=== PATIENT | female | born 1980 | race Caucasian/White ===

== ENCOUNTER 2020-05-19 19:27 | Emergency (ER) | payer OTHER ==
[~2020-05-19] VITALS: Ht 157.5 cm; Wt 68.9 kg
[2020-05-19 19:30] VITALS: BP 146/80
--- NOTE | 2020-05-19 19:30 | NUR ---
TO BED AMBULATORY
--- NOTE | 2020-05-19 19:38 | NUR ---
PATIENT STATES UNABLE TO PROVIDE URINE SAMPLE AT THIS TIME. ERMD MADE AWARE AND STATES OK TO GIVE PATIENT WATER.
--- NOTE | 2020-05-19 19:43 | NUR ---
PATIENT 39 Y/O FEMALE BIB SELF FOR C/O LOW BACK PAIN AND N/V X 2 DAYS. PATIENT STATES PAIN 8/10 IN BILATERAL FLANK X 2 DAYS. PATIENT ADMITS TO "HX OF RENAL FAILURE." PAITENT STATES "MILD URINARY BURNING." PATIENT ALSO HAS C/O N/V X 2 DAYS. ABD IS ROUND, SOFT, AND NON-TENDER. PATIENT BS ACTIVE X 4 QUADRANTS. SEE COMPELTE ASSESSMENT FOR FUTHER DETAILS. MEDHX: ULCER, CHRONIC BACK PAIN, TUBAL LIGATION ALLERGIES: NKA RX: NORCO
--- NOTE | 2020-05-19 19:55 | NUR ---
ERMD AT BEDSIDE EVALUATING PATIENT.
[2020-05-19] MEDS ORDERED: METOCLOPRAMIDE 10 MG/2 ML INJ VIAL IVP ONE (20:00)
[2020-05-19] MEDS ORDERED: diphenhydrAMINE 50 MG/ML VIAL IVP ONE (20:00)
--- NOTE | 2020-05-19 20:15 | NUR ---
IV PLACED IN L AC, LABS DRAWN AND GIVEN TO COLLECTION AGENT.
[2020-05-19 20:22] LABS: BASOPHILS % (AUTO) 0.4 % (0.0-2.0); EOSINOPHILS # (AUTO) 0.2 K/uL (0-0.4); EOSINOPHILS % (AUTO) 4.1 % (0.0-4.0); HEMATOCRIT 35.8 % (36-48); HEMOGLOBIN 11.6 g/dL (12.0-16.0); LYMPHOCYTES # (AUTO) 1.8 K/uL (2.5-16.5); LYMPHOCYTES % (AUTO) 35.9 % (20.5-51.1); MEAN CORPUSCULAR HEMOGLOBIN 24 pg (27-31); MEAN CORPUSCULAR HGB CONC 33 g/dL (33-37); MEAN CORPUSCULAR VOLUME 75.2 fL (80-94); MONOCYTES # (AUTO) 0.3 K/uL (0.8-1.0); MONOCYTES % (AUTO) 6.2 % (1.7-9.3); NEUTROPHILS # (AUTO) 2.7 K/uL (1.8-7.7); NEUTROPHILS % (AUTO) 53.4 % (42.2-75.2); PLATELET COUNT (AUTO) 345 K/uL (140-450); RED BLOOD CELL COUNT(AUTO) 4.76 MIL/uL (4.20-5.40); RED CELL DISTRIBUTION WIDTH 15.6 % (11.6-13.7); WHITE BLOOD COUNT (AUTO) 5.1 K/uL (4.8-10.8)
[2020-05-19 20:43] LABS: ALBUMIN 3.5 g/dL (3.4-5.0); ANION GAP 10.4 (8-16); CARBON DIOXIDE 29.4 mmol/L (21-32); CREATININE 0.9 mg/dL (0.6-1.3); POTASSIUM 3.8 mmol/L (3.5-5.1); TOTAL BILIRUBIN 0.4 mg/dL (0.0-1.0)
[2020-05-19 20:58] LABS: APPEARANCE,URINE SL CLOUDY (CLEAR); BILIRUBIN,URINE NEGATIVE (NEGATIVE); BLOOD, URINE NEGATIVE (NEGATIVE); COLOR,URINE YELLOW (YELLOW); LEUKOCYTE ESTERASE ,URINE TRACE (NEGATIVE); NITRITE, URINE POSITIVE (NEGATIVE); PH,URINE 8.5 (5.0-9.0); UGLUCOSE NEGATIVE (NEGATIVE)
[2020-05-19 21:03] LABS: RBC,URINE 0-5 /HPF (0-5)
[2020-05-19 21:09] LABS: BARBITURATE, URINE NEGATIVE ng/ml (NEG <=200); BENZODIAZEPINE, URINE NEGATIVE ng/mL (NEG <=200); CANNABINOID, URINE NEGATIVE ng/mL (NEG <=50); COCAINE, URINE NEGATIVE ng/mL (NEG <=300); OPIATE, URINE POSITIVE ng/mL (NEG <=2000); PHENCYCLIDINE SCREEN,URINE NEGATIVE ng/mL (NEG <=25)
[2020-05-19] MEDS ORDERED: ONDA-24 SL (21:21)
[2020-05-19] MEDS ORDERED: NITR100C7 PO (21:24)
[2020-05-19] MEDS ORDERED: NACL 0.9% 1,000 ML IV ONE (21:30)
--- NOTE | 2020-05-19 22:19 | NUR ---
Patient is currently ambulatory with steady gait, able to walk unassisted. Positive gag reflex. Alert and oriented. Is not driving self for discharge out of facility. [facility]
--- NOTE | 2020-05-19 22:19 | NUR ---
IV removed, catheter intact and site benign. Applied folded 4x4 gauze and tape to stop bleeding.
[2020-05-19 22:20] VITALS: BP 137/78
--- NOTE | 2020-05-19 22:20 | NUR ---
Patient discharged with v/s stable. Written and verbal after care instructions given and explained. Patient alert, oriented and verbalized understanding of instructions. Ambulatory with steady gait. All questions addressed prior to discharge. ID band removed. Patient advised to follow up with PMD. Rx of MACROBID, ZOFRAN given. Patient educated on indication of medication including possible reaction and side effects. Opportunity to ask questions provided and answered.
== END 2020-05-19 22:20 | disposition home or self-care (01) ==
LOC: MED 19:27
DX: N39.0 Urinary tract infection, site not specified (principal); R11.2 Nausea with vomiting, unspecified; F15.10 Other stimulant abuse, uncomplicated; F17.210 Nicotine dependence, cigarettes, uncomplicated; Z87.448 Personal history of other diseases of urinary system; Z71.6 Tobacco abuse counseling
CPT/HCPCS: 36415; 80053; 80305; 81001; 81025; 83690; 85025; 87086; 96361; 96374; 96375; 99284; J1200; J2765; J7030

== ENCOUNTER 2020-05-23 18:34 | Emergency (ER) | payer OTHER ==
[~2020-05-23] VITALS: Ht 157.5 cm; Wt 70.3 kg
[~2020-05-23 18:34] MED LIST: NITR100C7 PO; ONDA-24 SL
[2020-05-23 18:51] VITALS: BP 148/89
--- NOTE | 2020-05-23 18:56 | NUR ---
Patient ambulated to ER bed 1.
--- NOTE | 2020-05-23 19:03 | NUR ---
39 Y/O FEMALE C/O BILATERAL FLANK PAIN, N/V X3 TIMES TODAY, +FEVER/CHILLS FOR 3DAYS. PT STATES RECENTLY SEEN X3DAYS, PRESCRIBED ABX, NO RELIEF. PMH: OVARIAN CYST, KIDNEY TUMOR, CARPAL TUNNEL SX: TUBAL LIGATION, CHOLECYSTECTOMY NKA
--- NOTE | 2020-05-23 19:15 | NUR ---
Dr. Vieira at pt bedside for further evaluation.
[2020-05-23] MEDS ORDERED: NACL 0.9% 1,000 ML IV ONE (19:20)
[2020-05-23] MEDS ORDERED: KETOROLAC 30 MG/ML VIAL IVP ONE (19:20)
--- NOTE | 2020-05-23 19:27 | NUR ---
Report given to RENA Alfonso, transfer of care at this time.
[2020-05-23] MEDS ORDERED: cefTRIAXone 1,000 MG VIAL ONE (19:28)
[2020-05-23 19:44] LABS: APPEARANCE,URINE HAZY (CLEAR); BILIRUBIN,URINE NEGATIVE (NEGATIVE); BLOOD, URINE 3+ (NEGATIVE); COLOR,URINE YELLOW (YELLOW); LEUKOCYTE ESTERASE ,URINE NEGATIVE (NEGATIVE); NITRITE, URINE NEGATIVE (NEGATIVE); UGLUCOSE NEGATIVE (NEGATIVE)
--- NOTE | 2020-05-23 19:47 | NUR ---
received pt endorsement from Jonny CHASE. pt laying in bed in semi fowlers position. appears comfortable and in no distress. a/o x 4, gcs 15. able to move all extremities. pt is a 39 year old female coming in for re-evaluation of bilateral flank pain and UTI that has not seceded with abx therapy x 3 days. was seen 3 days ago and states now has n/v and subjective fever. reports 8/10 bilat flank pain that is non radiating. pt denies any other s/sx.
[2020-05-23 19:54] LABS: RBC,URINE 20-50 /HPF (0-5)
[2020-05-23 19:59] LABS: ALBUMIN 3.3 g/dL (3.4-5.0); ANION GAP 11.1 (8-16); CARBON DIOXIDE 28.9 mmol/L (21-32); TOTAL BILIRUBIN 0.2 mg/dL (0.0-1.0)
[2020-05-23 20:00] LABS: BASOPHILS % (AUTO) 0.7 % (0.0-2.0); EOSINOPHILS # (AUTO) 0.3 K/uL (0-0.4); EOSINOPHILS % (AUTO) 5.2 % (0.0-4.0); HEMATOCRIT 33.7 % (36-48); HEMOGLOBIN 11.2 g/dL (12.0-16.0); LYMPHOCYTES # (AUTO) 1.6 K/uL (2.5-16.5); LYMPHOCYTES % (AUTO) 29.2 % (20.5-51.1); MEAN CORPUSCULAR HEMOGLOBIN 25 pg (27-31); MEAN CORPUSCULAR HGB CONC 33 g/dL (33-37); MEAN CORPUSCULAR VOLUME 75.2 fL (80-94); MONOCYTES # (AUTO) 0.3 K/uL (0.8-1.0); MONOCYTES % (AUTO) 6.4 % (1.7-9.3); NEUTROPHILS # (AUTO) 3.2 K/uL (1.8-7.7); NEUTROPHILS % (AUTO) 58.5 % (42.2-75.2); PLATELET COUNT (AUTO) 370 K/uL (140-450); RED BLOOD CELL COUNT(AUTO) 4.47 MIL/uL (4.20-5.40); RED CELL DISTRIBUTION WIDTH 15.6 % (11.6-13.7); WHITE BLOOD COUNT (AUTO) 5.4 K/uL (4.8-10.8)
[2020-05-23] MEDS ORDERED: ACETAMINOPHEN EXTRA STRENGTH 500 MG TAB PO SCH (20:40)
--- NOTE | 2020-05-23 21:30 | NUR ---
pt taken to CT via [facility]
[2020-05-23 22:18] VITALS: BP 121/79
--- NOTE | 2020-05-23 22:19 | NUR ---
pt remains on bed laying down and awake. does not appear to be in distress. a/o x 4 gcs 15 able to move all extremities. connected to v/s monitor. VSS.
[2020-05-23] MEDS ORDERED: CEPH250C16 PO (22:38)
== END 2020-05-23 22:56 | disposition home or self-care (01) ==
LOC: MED 18:34
DX: R10.9 Unspecified abdominal pain (principal); R50.9 Fever, unspecified; R11.2 Nausea with vomiting, unspecified; Z79.899 Other long term (current) drug therapy; Z85.528 Personal history of other malignant neoplasm of kidney
CPT/HCPCS: 36415; 74176; 80053; 81001; 81025; 83690; 85025; 87086; 96361; 96365; 96375; 99284; J0696; J1885